=== PATIENT | female | born 1965 | race Caucasian/White ===

== ENCOUNTER → 2021-12-29 | Outpatient (CLI) | payer BC ==
[2021-12-29 11:45] VITALS: BP 150/93; PULSE 73; RESP 18; TEMP 98
--- NOTE | 2021-12-29 14:45 | P.PAINPG ---
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 Pt states her pain level is currently at 8/10 in intensity, constant, localized in the mid aspect of the lumbar spine, dull in character w shooting towards the flanks. Pain is provoked by bending/ lifting/ twisting. Pain is relieved by meds (Tylenol, Mobic, Zanaflex), ice, heat, PT x 4 wks in Jan 2021, massage integrated w PT, repositioning and rest. PMH: OA, HTN, CHF, COPD, GERD PSH: L Hand Reconstruction, Cholecystectomy SH: Negative x 3. Works at a daycare FH: Non contributory All: Unknown to pt Meds: See list REVIEW OF ORGAN SYSTEMS: CONSTITUTIONAL: No fevers or chills. No recent weight loss. NEUROLOGICAL: + numbness and tingling along the distal extremities. No seizure disorders or headaches. MUSCULOSKELETAL: + pain PSYCHIATRIC: Denies current depression or suicidal thoughts. Physical Examinations : Constitutional : Cooperative , not in acute distress . Neurologic : Cranial nerve II to XII intact. No focal neurological deficits. Psychiatric : alert & oriented x 3. Matching mood & appropriate affect. Judgment & insight intact. Musculoskeletal : Cervical Spine Motor strength in the deltoid and biceps: Normal right side. Normal Left side Motor strength biceps and the wrist extensors: Normal right side . Normal left side Motor strength in the triceps muscle: Normal right side. Normal left side Deep tendon reflexes: Normal at the biceps. Normal at Brachioradialis. Normal at triceps Vertebral body tenderness to deep palpation over Cervical facet loading test: positive bilaterally Spurling test: positive bilaterally Neck distraction test: positive bilaterally Familia sign: positive bilaterally Lumbar spine Motor strength lower extremities ,thigh and legs 5/5 Right side , 5/5 Left side Deep tendon reflexes : Normal Knee Jerk. Normal Ankle Jerk Vertebral body tenderness over L2 Lumbar facet Loading Test: positive Right / positive Left Range of motion of the lumbar spine Flexion 30 degrees, extension 10 degrees Straight Leg Raise test: Left/ Right positive at degree Devang test: positive right / positive left. Severe tenderness over the Sacroiliac joint on the Right / Left sides Gaenslen test: positive bilaterally Seated flexion test: positive bilaterally. Sacral spine : Severe tenderness over the Sacroiliac joint: right side / left side Range of motion: Flexion of the lumbar spine <60 degrees Range of motion: Extension of the lumbar spine <20 degrees Gaenslen's Test positive Ayaz's Test positive Devang test: positive right side / left side Thigh Thrust Test Sacral Thrust Test Imaging: MRI without contrast of the lumbar spine from 11/22/21 reviewed/ Assessment/ Plan : Lumbar DDD> Lumbar spondylosis Recommendation of PT x 6 wks re: M51.36. May benefit from REINA L2-L3. May need a series of injections, up to 3 within a 6 mo time frame, for optimal pain relief. Risks, benefits of procedure discussed and patient verbalized understanding. Admits to aspirin or anti- coagulant use or medical history of diabetes. Protocol for discontinuation/ continuation of medications tahira procedure discussed. All questions answered. I have spent greater than 30 minutes on patient care today. Dr Cervantes was available by phone for the evaluation of this patient. The time was used to review the medical records including relevant urine studies and Prescription history (MAPs), review of the available imaging, evaluation and examination of the patient, coordination of care with the medical staff and if applicable referring physicians, as well as creation of the medical record Controlled Substance Measures - Controlled Substance Measures Is patient prescribed a controlled substance at discharge?: No
== END | disposition home or self-care (01) ==
LOC: PNWHC3 10:28
PROVIDERS: ATTEND Specialist
DX: M51.36 Other intervertebral disc degeneration, lumbar region (principal); M54.16 Radiculopathy, lumbar region; M51.26 Other intervertebral disc displacement, lumbar region
CPT/HCPCS: 99202